=== PATIENT | male | born 1985 | race Caucasian/White ===

== ENCOUNTER 2020-04-15 06:38 | Emergency (ER) | payer MEDICAID, SELFPAY ==
[2020-04-15 06:47] VITALS: BP 129/86; PULSE 112; O2SAT 99
[2020-04-15 06:50] VITALS: BP 129/86; PULSE 113; RESP 20; TEMP 36.5; O2SAT 100
--- NOTE | 2020-04-15 07:00 | ED.SKABFB ---
HPI - Skin/Abscess/Foreign Bdy General Chief complaint: Skin/Abscess/Foreign Body Stated complaint: Sore on left butt cheek Time Seen by Provider: 04/15/20 06:57 Source: patient Mode of arrival: Ambulatory Limitations: no limitations History of Present Illness HPI narrative: 35M smoker with history of skin infections and ?skin popping ?presents with a chief complaint of a spontaneously draining, painful lesion on his left buttock. He denies any fever or chills. He denies nausea or vomiting. He states that he intramuscularly injected illicit drugs a few days ago and developed this soon after. There was some drainage spontaneously is no longer period. MD complaint: abscess/boil Onset (ago): day(s) Tetanus up to date: yes Location: buttocks Severity: mild Quality: aching Pain Consistency: constant Relieving factors: none Exacerbating factors: palpation Associated symptoms: denies other symptoms Treatments prior to arrival: attempted to drain pus at home Related Data Previous Rx's Medication Instructions Recorded doxycycline hyclate 100 mg PO BID #20 tab 04/15/20 Review of Systems Constitutional Constitutional: Denies chills, Denies fatigue, Denies fever(s), Denies frequent falls, Denies lethargy and Denies weakness Eyes Eyes: Denies change in vision, Denies eye discharge, Denies irritation and Denies loss of vision ENT Ears, Nose, Mouth, and Throat: Denies change in voice, Denies dizziness, Denies neck pain, Denies sore throat and Denies throat swelling Cardiovascular Cardiovascular: Denies chest pain, Denies irregular heart rhythm, Denies lightheadedness, Denies palpitations, Denies dyspnea, Denies dyspnea on exertion and Denies orthopnea Respiratory Respiratory: Denies cough, Denies dyspnea, Denies dyspnea on exertion and Denies wheezing Gastrointestinal Gastrointestinal: Denies abdominal pain, Denies change in bowel habits, Denies diarrhea, Denies nausea and Denies vomiting Musculoskeletal Musculoskeletal: Denies neck pain and Denies numbness Integumentary/Breasts Skin/Breast: Denies pruritus, Reports erythema, Denies rash and Reports wounds Neurologic Neurologic: Denies behavioral changes, Denies confusion, Denies dizziness, Denies frequent falls, Denies loss of vision, Denies numbness and Denies weakness Psychiatric Psychiatric: Denies anxiety, Denies behavioral changes, Denies confusion, Denies depression, Denies homicidal ideation and Denies suicidal ideation Endocrine Endocrine: Denies fatigue, Denies flushing and Denies palpitations Hematologic/Lymphatic Hematologic/Lymphatic: Denies easy bruising Allergic/Immunologic Allergic/Immunologic: Denies urticaria, Denies throat swelling and Denies wheezing Patient History Social History Smoking Status: Current every day smoker Smoking Status: Current every day smoker alcohol intake frequency: a few times a month Substance Use Type: heroin Exam Narrative Exam Narrative: GEN: AOx3 and in mild distress EYES: Pupils are equal, round, and reactive to light and accommodation. Extraoccular muscles are intact bilaterally. There is no subconjunctival hemorrhage or exudate. CHEST: Lungs are clear to auscultation bilaterally and free of wheezes, rales, or rhonchi. Heart rate is regular rhythm, there are no murmurs, clicks, rubs, or gallops. There is no chest wall tenderness. ABD: Abdomen is soft and nontender. There is no guarding or rebound. Bowel sounds are normal in all 4 quadrants. There is no mass or organomegaly. EXT: Full painless ROM of all extremities with no loss of sensation or strength. SKIN: 2 x 2 cm ulcerated lesion on the left buttock with some induration and surrounding erythema consistent with spontaneously draining abscess. Otherwise warm, pink, and dry. No erythema or rash Initial Vital Signs Initial Vital Signs: Vital Signs Pulse Rate 112 H 04/15/20 06:47 Blood Pressure 129/86 04/15/20 06:47 Pulse Oximetry 99 04/15/20 06:47 Course Vital Signs Vital signs: Vital Signs - 8 hr 04/15/20 06:47 04/15/20 06:50 Temperature 97.7 F Pulse Rate 112 H 113 H Respiratory Rate 20 Blood Pressure 129/86 129/86 Pulse Oximetry 99 100 Discharge Plan Departure Patient Disposition: Home Clinical Impression: Abscess of skin or subcutaneous tissue Qualifiers: Site of cutaneous abscess: buttock Qualified Code(s): L02.31 - Cutaneous abscess of buttock Discharge Date/Time: 04/15/20 07:21 Instructions: DI for Skin Abscess Activity Restrictions/Additional Instructions: *You have been diagnosed with [ abscess ] *What to do: *Take medications as directed *Follow up with your primary care provider in 2-3 days, call for an appointment. Let them know you were seen in the Emergency Department and that we ask that you be seen in follow up *Return to ER if you should have any new, worsening or concerning symptoms Prescriptions: New doxycycline hyclate 100 mg tablet 100 mg PO BID Qty: 20 RF: 0
== END 2020-04-15 07:21 | disposition home or self-care (01) ==
PROVIDERS: Emergency Provider Emergency Medicine
DX: L02.31 Cutaneous abscess of buttock (principal)
CPT/HCPCS: 99281